=== PATIENT | male | born 1970 | race Caucasian/White ===

== ENCOUNTER 2017-10-07 19:43 | Emergency (ER) | payer OTHER ==
[~2017-10-07] VITALS: Ht 177.8 cm; Wt 133.8 kg
[2017-10-07 19:57] VITALS: Ht 177.8 cm; Wt 133.8 kg
[2017-10-07 22:58] VITALS: BP 120/78
== END 2017-10-07 23:01 | disposition home or self-care (01) ==
LOC: ED 19:43
DX: M25.562 Pain in left knee (principal)
CPT/HCPCS: J1885